=== PATIENT | female | born 1975 | race Two or more races ===

== ENCOUNTER 2019-02-23 09:38 | Emergency (ER) | payer SELFPAY ==
[~2019-02-23] VITALS: Ht 165.1 cm; Wt 80.0 kg
[2019-02-23] MEDS ORDERED: BACITRACIN ZINC OINT UDPKT TOP ONE (11:15)
[2019-02-23] MEDS ORDERED: IBUPROFEN 600MG TABLET PO ONE (11:15)
[2019-02-23 11:35] VITALS: BP 178/92
== END 2019-02-23 12:30 | disposition home or self-care (01) ==
LOC: ER 09:38
DX: S90.01XA Contusion of right ankle, initial encounter (principal); S90.31XA Contusion of right foot, initial encounter; E11.9 Type 2 diabetes mellitus without complications; V49.59XA Passenger injured in collision with other motor vehicles in traffic accident, initial encounter; Y93.89 Activity, other specified; Y92.89 Other specified places as the place of occurrence of the external cause; Y99.8 Other external cause status
CPT/HCPCS: 73562; 73610; 73630; 99283